=== PATIENT | female | born 1980 | race American Indian/Alaskan Native ===

== ENCOUNTER 2018-09-09 21:28 | Emergency (ER) | payer OTHER ==
[~2018-09-09] VITALS: Ht 162.6 cm; Wt 97.1 kg
[2018-09-09] MEDS ORDERED: VITAMIN D5000 UNI1 PO (22:18)
[2018-09-09] MEDS ORDERED: GLUCOPHAGE850 MG PO (22:18)
[2018-09-09] MEDS ORDERED: ZESTRIL2.5 MG PO (22:18)
[2018-09-09] MEDS ORDERED: LOVASTATIN10 MG PO (22:19)
[2018-09-09] MEDS ORDERED: ASPIR 8181 MG PO (22:19)
[2018-09-10] MEDS ORDERED: NAPROXEN500 MG PO (01:58)
== END 2018-09-10 02:15 | disposition home or self-care (01) ==
LOC: ED 21:28
DX: R10.9 Unspecified abdominal pain (principal); I10 Essential (primary) hypertension; E11.9 Type 2 diabetes mellitus without complications; E78.00 Pure hypercholesterolemia, unspecified; Z87.891 Personal history of nicotine dependence; Z79.84 Long term (current) use of oral hypoglycemic drugs; Z79.82 Long term (current) use of aspirin; Z79.899 Other long term (current) drug therapy
CPT/HCPCS: 74177; 80053; 81001; 83690; 84703; 85025; 96361; 96374; 96375; 99284-25; J2270; J2405; J7030; Q9967